=== PATIENT | male | born 1990 | race African-American/Black ===

== ENCOUNTER 2021-10-12 20:02 | Emergency (ER) | payer SELFPAY ==
[~2021-10-12] VITALS: Ht 172.7 cm; Wt 59.0 kg
[2021-10-12 23:47] LABS: EOSINOPHILS % 1.6 % (0.0-5.0); HEMATOCRIT. 41.1 % (42.0-52.0); HEMOGLOBIN. 13.7 g/dL (14.0-18.0); LYMPHOCYTES % 27.4 % (20.0-50.0); MEAN CORPUSCULAR HEMOGLOBIN 29.8 pg (28.0-32.0); MEAN CORPUSCULAR VOLUME 89.4 fL (80.0-94.0); MEAN PLATELET VOLUME 8.4 fl (7.4-10.4); MONOCYTES % 9.5 % (2.0-8.0); NEUTROPHILS % 60.5 % (40.0-76.0); PLATELET 276 x1000/uL (130-400); RED CELL DISTRIBUTION WIDTH 13.9 % (11.6-14.6)
[2021-10-13 00:01] LABS: CHLORIDE 106 mEq/L (98-107)
[2021-10-13 00:06] LABS: ETHANOL BLOOD < 10 mg/dL
[2021-10-13 02:36] LABS: CLARITY URINE CLEAR (CLEAR); COLOR URINE YELLOW (YELLOW); KETONES URINE TRACE (NEGATIVE); LEUKOCYTE ESTERASE URINE NEGATIVE (NEGATIVE); NITRITE URINE NEGATIVE (NEGATIVE); OCCULT BLOOD URINE NEGATIVE (NEGATIVE); PH URINE 5.5 (4.5-8.0); PROTEIN URINE NEGATIVE (NEGATIVE); UROBILINOGEN URINE 0.2 E.U./dL (0.2-1.0)
[2021-10-13 03:31] LABS: *AMPHETAMINES SCREEN URINE PRESUMTIVE POSITIVE (NEGATIVE); *BARBITURATES SCREEN URINE NEGATIVE (NEGATIVE)
[2021-10-13 03:32] LABS: *BENZODIAZEPINES SCREEN URINE PRESUMTIVE POSITIVE (NEGATIVE); *COCAINE SCREEN URINE NEGATIVE (NEGATIVE); CANNABINOID URINE SCREEN NEGATIVE (NEGATIVE); METHADONE URINE SCREEN NEGATIVE (NEGATIVE); OPIATES URINE SCREEN NEGATIVE (NEGATIVE); PHENCYCLIDINE URINE SCREEN NEGATIVE (NEGATIVE)
[2021-10-13] MEDS ORDERED: NALO4SPR BOTHNSTRLS (03:40)
[2021-10-13 05:40] VITALS: BP 108/80
== END 2021-10-13 05:40 | disposition home or self-care (01) ==
LOC: EDBD 20:02 → ER 20:02
DX: F15.10 Other stimulant abuse, uncomplicated (principal); F16.10 Hallucinogen abuse, uncomplicated; R41.82 Altered mental status, unspecified; Z78.1 Physical restraint status
CPT/HCPCS: 36415; 71045; 80053; 80305; 80307; 80320; 80329; 81003; 82962; 83880; 84443; 85025; 93005; 99285; G0480